=== PATIENT | female | born 1950 | race Caucasian/White ===

== ENCOUNTER 2020-07-26 13:39 | Emergency (ER) | payer OTHER, SELFPAY ==
[~2020-07-26] VITALS: Ht 162.6 cm; Wt 57.6 kg
[2020-07-26 13:46] VITALS: Ht 162.6 cm; Wt 57.6 kg
[2020-07-26 15:01] LABS: RED CELL DISTRIBUTION WIDTH 14.2 % (12.3-17.7)
[2020-07-26 15:04] LABS: BASOPHIL % 0.5 % (0.2-1.3); PLATELET COUNT 188 x10^3mcL (179-408)
[2020-07-26 15:14] LABS: CARBON DIOXIDE 25.8 mmol/L (21-32); CHLORIDE SERUM 107 mmol/L (98-107); CREATININE SERUM 0.7 mg/dL (0.6-1.0); GFR1 > 60 mL/min; GLUCOSE SERUM 108 mg/dL (74-106); POTASSIUM SERUM 4.1 mmol/L (3.5-5.1); SODIUM SERUM 142 mmol/L (136-145)
[2020-07-26 15:19] LABS: ALBUMIN 3.6 g/dL (3.4-5.0); ALKALINE PHOSPHATASE 69 U/L (46-116); ALT/SGPT 32 U/L (14-59); AST/SGOT 24 U/L (15-37); BILIRUBIN TOTAL 0.4 mg/dL (0.20-1.00); TOTAL PROTEIN, SERUM 6.3 g/dL (6.4-8.2)
[2020-07-26 15:39] LABS: microscopic required? NO
[2020-07-26 15:42] LABS: urine erythrocyte NEGATIVE (NEGATIVE)
[2020-07-26 16:17] VITALS: BP 112/64
== END 2020-07-26 16:17 | disposition home or self-care (01) ==
LOC: ED 13:39
PROVIDERS: Emergency Medicine
DX: R42 Dizziness and giddiness (principal); E03.9 Hypothyroidism, unspecified; E78.5 Hyperlipidemia, unspecified
CPT/HCPCS: J8597; U0003